=== PATIENT | female | born 1975 | race Caucasian/White ===

== ENCOUNTER 2018-01-11 19:52 | Emergency (ER) | payer MEDICAID ==
[~2018-01-11] VITALS: Ht 157.5 cm; Wt 99.7 kg
[~2018-01-11 19:52] MED LIST: ALPR-624 PO; CHOL10002 PO; FENO145T38 PO
[2018-01-11 19:55] VITALS: BP 148/76
== END 2018-01-11 21:10 | disposition home or self-care (01) ==
LOC: ER 19:55
DX: H92.03 Otalgia, bilateral (principal); Z88.5 Allergy status to narcotic agent; Z88.2 Allergy status to sulfonamides; Z88.1 Allergy status to other antibiotic agents; Z79.899 Other long term (current) drug therapy
CPT/HCPCS: 99281

== ENCOUNTER 2018-06-06 14:05 | Emergency (ER) | payer MEDICAID ==
[~2018-06-06] VITALS: Ht 157.5 cm; Wt 100.0 kg
[2018-06-06 14:15] VITALS: BP 136/84
[2018-06-06] MEDS ORDERED: LORazepam 1 MG tablet PO ONE (14:35)
[2018-06-06] MEDS ORDERED: meclizine 12.5mg tablet PO ONE (14:35)
[2018-06-06] MEDS ORDERED: LORA1TAB PO (15:11)
[2018-06-06] MEDS ORDERED: MECL-111 PO (15:11)
== END 2018-06-06 15:33 | disposition home or self-care (01) ==
LOC: ER 14:06
DX: R42 Dizziness and giddiness (principal); H53.8 Other visual disturbances; R22.0 Localized swelling, mass and lump, head; Z88.5 Allergy status to narcotic agent; Z88.1 Allergy status to other antibiotic agents; Z79.899 Other long term (current) drug therapy
CPT/HCPCS: 93005; 99283; J8597

== ENCOUNTER 2020-05-02 14:09 | Emergency (ER) | payer MEDICAID ==
[~2020-05-02] VITALS: Ht 157.5 cm; Wt 100.9 kg
[~2020-05-02 14:09] MED LIST changes: +MECL-159 PO
[2020-05-02 14:21] VITALS: BP 153/78
[2020-05-02] MEDS ORDERED: ketorolac tromethamine 15mg/ml inj. IM ONE (15:45)
== END 2020-05-02 16:28 | disposition home or self-care (01) ==
LOC: ER 14:10
DX: R68.84 Jaw pain (principal); R22.0 Localized swelling, mass and lump, head; F41.9 Anxiety disorder, unspecified; F32.9 Major depressive disorder, single episode, unspecified; Z88.5 Allergy status to narcotic agent; Z88.1 Allergy status to other antibiotic agents; Z88.2 Allergy status to sulfonamides; Z79.899 Other long term (current) drug therapy
CPT/HCPCS: 96372; 99283; J1885

== ENCOUNTER 2020-07-19 05:22 | Day surgery (SDC) | payer MEDICAID ==
[2020-07-12 11:08] LABS: BASOPHILS % (AUTO) 0.5 % (0-1); EOSINOPHILS # (AUTO) 0.4 X10'3 (0-0.9); EOSINOPHILS % (AUTO) 5.5 % (0-6); LYMPHOCYTES # (AUTO) 3.1 X10'3 (1.1-4.8); LYMPHOCYTES % (AUTO) 45.7 % (21-51); MEAN CORPUSCULAR HEMOGLOBIN 29.4 PG (27.0-31.0); MEAN CORPUSCULAR HGB CONC 32.8 g/dL (33.0-36.5); MEAN CORPUSCULAR VOLUME 89.7 FL (78-98); MEAN PLATELET VOLUME 8.3 FL (7.4-10.4); MONOCYTES # (AUTO) 0.6 X10'3 (0-0.9); MONOCYTES % (AUTO) 9.3 % (2-12); NEUTROPHILS # (AUTO) 2.6 X10'3 (1.8-7.7); PRE OP HEMATOCRIT 41.4 % (35.0-45.0); PRE OP HEMOGLOBIN 13.6 g/dL (12.0-16.0); PRE OP PLATELET COUNT 296 X10'3 (140-440); RED BLOOD COUNT 4.62 X10'6 (4.20-5.60); RED CELL DISTRIBUTION WIDTH 13.5 % (11.5-14.5)
[2020-07-12 11:24] LABS: ALBUMIN 3.8 G/DL (3.4-5.0); ALKALINE PHOSPHATASE 89 IU/L (46-116); BLOOD UREA NITROGEN 10 MG/DL (7-18); BUN/CREATININE RATIO 10.2 (6.6-38.0); CALCIUM 9.2 MG/DL (8.5-10.1); CHLORIDE 105 MMOL/L (99-107); CREATININE 0.98 MG/DL (0.40-0.90); PRE OP ALT 57 U/L (30-65); PRE OP ANION GAP 8 (8-16); PRE OP AST 27 U/L (10-37); PRE OP BILIRUB, TOTAL 0.5 MG/DL (0.0-1.0); PRE OP GLUCOSE 75 MG/DL (70-104); PRE OP POTASSIUM 3.8 MMOL/L (3.4-5.1); PRE OP SODIUM 141 MMOL/L (135-145); TOTAL CARBON DIOXIDE 28.2 MMOL/L (24-32); TOTAL PROTEIN 7.7 G/DL (6.4-8.2); eGFR 61 ML/MIN
[~2020-07-19] VITALS: Ht 157.5 cm; Wt 106.1 kg
[~2020-07-19 05:22] MED LIST changes: +ATOR80TA13 PO; -CHOL10002 PO; -FENO145T38 PO; +HYDR-3972 PO; +IBUP-1986 PO; -MECL-159 PO; +PANT40SU2 PO; +TRAZ-251 PO
[2020-07-19] MEDS ORDERED: famotidine 20mg tablet PO ONE (05:30)
[2020-07-19] MEDS ORDERED: ringers solution, lacted 1,000 ML IV SCH (05:30)
[2020-07-19] MEDS ORDERED: cefazolin/dext.iso 2gm/100ml IV ONE (05:30)
[2020-07-19] MEDS ORDERED: LIDOcaine 1% (10mg/ml) 2ml vial ONE ×2 (05:44→05:45)
[2020-07-19 06:49] VITALS: BP 142/92
[2020-07-19 06:50] VITALS: BP 142/92
[2020-07-19] MEDS ORDERED: BUPIVAcaine/PF 2.5 mg/ml (0.25%) 30ml vial ONE (07:05)
[2020-07-19] MEDS ORDERED: fentaNYL/PF 50MCG/1 ML 2ML syringe ONE (07:10)
[2020-07-19] MEDS ORDERED: MIDAZolam 1 MG/ML 5ML VIAL ONE (07:11)
[2020-07-19] MEDS ORDERED: LIDOcaine 1% 30ml preserv. free vial ONE ×2 (07:19→07:20)
[2020-07-19] MEDS ORDERED: ketorolac trometh. 30mg/ml inj. ONE (07:33)
[2020-07-19] MEDS ORDERED: propofol inj 20 ML IV ONE (07:54)
[2020-07-19 07:56] VITALS: BP 118/76
--- NOTE | 2020-07-19 07:56 | NUR ---
RECEIVED PATIENT ON [facility] AND REPORT FROM ANESTHESIOLOGIST DR. MACEDO, PATIENT IS IN SPINE, V.S. STABLE, DENIES PAIN OR NAUSEA, DRESSING AND IBRAHIMA WRAP ON RIGHT WRIST, CDI, PIV ON LEFT WRIST 22G WITH LR RUNNING, WILL MONITOR. Addendum: 07/19/20 at 0807 by Flavia Turner RN Amended: Links added.
[2020-07-19 08:10] VITALS: BP 117/71
[2020-07-19 08:20] VITALS: BP 118/71
[2020-07-19 08:30] VITALS: BP 122/72
--- NOTE | 2020-07-19 08:36 | NUR ---
PATIENT'S V.S. STABLE, DENIES PAIN OR NAUSEA, DRESSING AND IBRAHIMA WRAP CDI ON RIGHT WRIST, PIV D/C'D FROM LEFT WRIST 22G CATH INTACT, DISCHARGE INSTRUCTION GIVEN TO PATIENT, VERBALIZED UNDERSTANDING, PATIENT TRANSFERRED WITH ONE BAG OF BELONGING TO PRIVATE VEHICLE IN WHEELCHAIR WITH NO INCIDENTS, HER MOTHER WILL TRANSFER PATIENT HOME. Addendum: 07/19/20 at 0846 by Flavia Turner RN Amended: Links added.
== END 2020-07-19 08:36 | disposition home or self-care (01) ==
LOC: PAS 05:22
PROVIDERS: ATTEND Orthopaedic Surgery Hand Surgery
DX: G56.01 Carpal tunnel syndrome, right upper limb (principal); M65.311 Trigger thumb, right thumb; M65.331 Trigger finger, right middle finger; E78.00 Pure hypercholesterolemia, unspecified; F41.9 Anxiety disorder, unspecified; K21.9 Gastro-esophageal reflux disease without esophagitis; E66.01 Morbid (severe) obesity due to excess calories; Z68.41 Body mass index [BMI] 40.0-44.9, adult; Z88.5 Allergy status to narcotic agent; Z88.2 Allergy status to sulfonamides; Z88.1 Allergy status to other antibiotic agents; Z87.891 Personal history of nicotine dependence; Z98.51 Tubal ligation status; Z90.721 Acquired absence of ovaries, unilateral
CPT/HCPCS: 26055; 29848; 36415; 80053; 82948; 85025; 93005; A6222; J1885; J2001; J2250; J2704; J3010; J3490; A4215; A6449; A7000; J7120

== ENCOUNTER 2022-03-07 17:28 | Emergency (ER) | payer MEDICAID ==
[~2022-03-07] VITALS: Ht 157.5 cm; Wt 100.0 kg
[2022-03-07 17:34] VITALS: BP 164/89
== END 2022-03-07 19:38 | disposition left against medical advice (07) ==
LOC: ER 17:28
DX: R51.9 Headache, unspecified (principal); Z53.21 Procedure and treatment not carried out due to patient leaving prior to being seen by health care provider

== ENCOUNTER 2022-06-19 07:30 | Day surgery (SDC) | payer MEDICAID ==
[2022-06-13 09:46] LABS: BASOPHILS % (AUTO) 0.6 % (0-1); EOSINOPHILS # (AUTO) 0.2 X10'3 (0-0.9); EOSINOPHILS % (AUTO) 3.9 % (0-6); LYMPHOCYTES # (AUTO) 2.2 X10'3 (1.1-4.8); MEAN CORPUSCULAR HEMOGLOBIN 29.7 PG (27.0-31.0); MEAN CORPUSCULAR HGB CONC 33.4 g/dL (33.0-36.5); MEAN CORPUSCULAR VOLUME 88.9 FL (78-98); MEAN PLATELET VOLUME 8.8 FL (7.4-10.4); MONOCYTES # (AUTO) 0.4 X10'3 (0-0.9); MONOCYTES % (AUTO) 6.8 % (2-12); NEUTROPHILS # (AUTO) 3.1 X10'3 (1.8-7.7); NEUTROPHILS % (AUTO) 51.7 % (42-75); PRE OP HEMATOCRIT 42.4 % (35.0-45.0); PRE OP HEMOGLOBIN 14.2 g/dL (12.0-16.0); PRE OP PLATELET COUNT 328 X10'3 (140-440); RED BLOOD COUNT 4.78 X10'6 (4.20-5.60); RED CELL DISTRIBUTION WIDTH 13.5 % (11.5-14.5)
[2022-06-13 10:01] LABS: ALBUMIN/GLOBULIN RATIO 1.1 (1.1-1.5); ALKALINE PHOSPHATASE 52 IU/L (46-116); BLOOD UREA NITROGEN 17 MG/DL (7-18); BUN/CREATININE RATIO 15.6 (10.0-20.0); CALCIUM 9.4 MG/DL (8.5-10.1); CHLORIDE 106 MMOL/L (99-107); CREATININE 1.09 MG/DL (0.40-0.90); PRE OP ALT 58 U/L (30-65); PRE OP ANION GAP 8 (8-16); PRE OP AST 32 U/L (10-37); PRE OP BILIRUB, TOTAL 0.2 MG/DL (0.0-1.0); PRE OP GLUCOSE 102 MG/DL (70-104); PRE OP POTASSIUM 4.3 MMOL/L (3.4-5.1); PRE OP SODIUM 141 MMOL/L (135-145); TOTAL CARBON DIOXIDE 27.3 MMOL/L (24-32); TOTAL PROTEIN 7.8 G/DL (6.4-8.2); eGFR 54 ML/MIN
[~2022-06-19] VITALS: Ht 157.5 cm; Wt 99.9 kg
[~2022-06-19 07:30] MED LIST changes: -ALPR-624 PO; -ATOR80TA13 PO; +FENO160T PO; -HYDR-3972 PO; -IBUP-1986 PO; -TRAZ-251 PO; +[UNRECOGNIZED DRUG - REMARK] PO; +clindamycin-Cleocin 900mg/D5W 50 ML IV ONE; +famotidine 20mg tablet PO ONE; +ringers solution, lacted 1,000 ML IV SCH
[2022-06-19 07:40] VITALS: BP 129/74
[2022-06-19] MEDS ORDERED: BUPIVAcaine/PF 2.5mg/ml (0.25%) 10ml vial ONE (07:49)
[2022-06-19] MEDS ORDERED: morphine 2 MG/ML inj. syringe IV PRN (08:00)
[2022-06-19] MEDS ORDERED: labetalol 20mg/4ml (5mg/ml) syringe IV PRN (08:00)
[2022-06-19] MEDS ORDERED: ringers solution, lacted 1,000 ML IV SCH (08:00)
[2022-06-19] MEDS ORDERED: ondansetron/PF 4mg/2ml inj IV PRN (08:00)
[2022-06-19] MEDS ORDERED: morphine 4 MG/ML inj SYRINge IV PRN (08:00)
[2022-06-19] MEDS ORDERED: midazolam 1 mg/ML 2ml injection ONE (10:21)
[2022-06-19] MEDS ORDERED: fentaNYL/PF 50MCG/1 ML 2ML syringe ONE (10:21)
[2022-06-19] MEDS ORDERED: LIDOcaine 0.5% (5mg/ml) 50ml vial ONE (10:21)
[2022-06-19 10:37] VITALS: BP 132/74
--- NOTE | 2022-06-19 10:37 | NUR ---
Received from OR via , accompanied by Anesthesiologist LUIS AND OR JESUS and report given by Anesthesiolgist. PT DROWSY YET REPSONDS TO VERBAL STIMULI. DENIES PAIN OR DISCOMFORT. RT WRIST WITH GAUZE AND IBRAHIMA WRAP; CDI. VSS Addendum: 06/19/22 at 1054 by Ally Palacios RN Amended: Links added.
[2022-06-19 10:50] VITALS: BP 130/79
[2022-06-19 11:00] VITALS: BP 110/74
[2022-06-19 11:10] VITALS: BP 109/66
[2022-06-19 11:20] VITALS: BP 116/76
--- NOTE | 2022-06-19 11:37 | NUR ---
ALL DISCHARGE CRITERIA HAS BEEN MET. VSS, PAIN AT A TOLERABLE LEVEL, VOIDING AND ABLE TO SAFELY AMBULATE AND TRANSFER SELF. IV TAKEN OUT WITHOUT ANY COMPLICATIONS. ALL DISCHARGE INSTRUCTIONS COVERED WITH PATIENT AND ALL QUESTIONS ANSWERED. PATIENT TAKEN OUT VIA WHEELCHAIR TO PERSONAL VEHICLE WHERE FAMILY/FRIEND DROVE PATIENT HOME. Addendum: 06/19/22 at 1144 by Ally Palacios RN Amended: Links added.
== END 2022-06-19 11:37 | disposition home or self-care (01) ==
LOC: PAS 07:30
PROVIDERS: ATTEND Orthopaedic Surgery Hand Surgery
DX: M65.341 Trigger finger, right ring finger (principal); E78.00 Pure hypercholesterolemia, unspecified; E66.9 Obesity, unspecified; Z68.41 Body mass index [BMI] 40.0-44.9, adult; K21.9 Gastro-esophageal reflux disease without esophagitis; F41.9 Anxiety disorder, unspecified; Z87.891 Personal history of nicotine dependence; Z88.1 Allergy status to other antibiotic agents; Z88.0 Allergy status to penicillin; Z88.5 Allergy status to narcotic agent; Z88.2 Allergy status to sulfonamides; Z79.899 Other long term (current) drug therapy; Z98.890 Other specified postprocedural states; Z90.722 Acquired absence of ovaries, bilateral
CPT/HCPCS: 26055; 36415; 80053; 82948; 85025; 93005; J2250; J3010; J3490; J7030; J7120; Z7506; Z7512; A4215

== ENCOUNTER 2023-03-27 11:12 | Emergency (ER) | payer MEDICAID ==
[~2023-03-27] VITALS: Ht 160 cm; Wt 98.7 kg
[~2023-03-27 11:12] MED LIST changes: -clindamycin-Cleocin 900mg/D5W 50 ML IV ONE; -famotidine 20mg tablet PO ONE; -ringers solution, lacted 1,000 ML IV SCH
[2023-03-27 11:45] VITALS: BP 138/81; PULSE 70; RESP 16; TEMP 97.9; O2SAT 100
[2023-03-27] MEDS ORDERED: OXYM30SP26 BOTHNARES (12:24)
[2023-03-27] MEDS ORDERED: PRED20TA PO (12:24)
[2023-03-27] MEDS ORDERED: DIPH25TA62 PO (12:24)
== END 2023-03-27 12:44 | disposition home or self-care (01) ==
LOC: ER 11:12
DX: H69.92 Unspecified Eustachian tube disorder, left ear (principal); F31.9 Bipolar disorder, unspecified; I10 Essential (primary) hypertension; Z88.5 Allergy status to narcotic agent; Z88.8 Allergy status to other drugs, medicaments and biological substances; Z79.899 Other long term (current) drug therapy
CPT/HCPCS: 99283

== ENCOUNTER → 2024-01-07 | Emergency (ER) | payer MEDICAID ==
[~2024-01-07] VITALS: Ht 157.5 cm; Wt 99.0 kg
[~2024-01-07] MED LIST changes: +DIPH25TA62 PO; +OXYM30SP26 BOTHNARES
[2024-01-07 17:08] VITALS: BP 156/85; PULSE 68; RESP 16; TEMP 98.3; O2SAT 99
== END | disposition left against medical advice (07) ==
LOC: ER 16:48
DX: Z23 Encounter for immunization (principal); F41.9 Anxiety disorder, unspecified; F32.A Depression, unspecified; Z88.1 Allergy status to other antibiotic agents; Z88.2 Allergy status to sulfonamides; Z79.899 Other long term (current) drug therapy; W55.51XA Bitten by raccoon, initial encounter; Y93.89 Activity, other specified; Y92.89 Other specified places as the place of occurrence of the external cause; Y99.8 Other external cause status
CPT/HCPCS: 99281

== ENCOUNTER 2024-04-15 16:02 | Emergency (ER) | payer OTHER, MEDICAID ==
[~2024-04-15] VITALS: Ht 157.5 cm; Wt 98.9 kg
[2024-04-15] MEDS ORDERED: LIDO700A32 TD (19:18)
[2024-04-15] MEDS ORDERED: BACL10TA2 PO (19:18)
[2024-04-15] MEDS: LIDOcaine 5% patch TP STA (19:27)
[2024-04-15 19:49] VITALS: BP 134/70; PULSE 74; RESP 16; TEMP 97.8; O2SAT 98
== END 2024-04-15 19:49 | disposition home or self-care (01) ==
LOC: ER 16:03
DX: M54.2 Cervicalgia (principal); F41.9 Anxiety disorder, unspecified; F32.A Depression, unspecified; Z88.5 Allergy status to narcotic agent; Z88.2 Allergy status to sulfonamides; Z88.1 Allergy status to other antibiotic agents; Z79.899 Other long term (current) drug therapy; V89.2XXA Person injured in unspecified motor-vehicle accident, traffic, initial encounter; Y93.89 Activity, other specified; Y92.89 Other specified places as the place of occurrence of the external cause; Y99.8 Other external cause status
CPT/HCPCS: 99283; L0172

== ENCOUNTER 2024-05-28 18:30 | Inpatient (IN) | payer MEDICAID, OTHER ==
[~2024-05-28] VITALS: Ht 157.5 cm; Wt 100.5 kg
[~2024-05-28 18:30] MED LIST changes: +BACL10TA2 PO; +LIDO700A32 TD
[2024-05-28 19:04] LABS: BASOPHILS % (AUTO) 0.5 % (0-1); EOSINOPHILS # (AUTO) 0.2 X10'3 (0-0.9); EOSINOPHILS % (AUTO) 2.4 % (0-6); HEMATOCRIT 43.5 % (35.0-45.0); HEMOGLOBIN 14.3 g/dl (12.0-16.0); LYMPHOCYTES # (AUTO) 3.1 X10'3 (1.1-4.8); LYMPHOCYTES % (AUTO) 34.5 % (21-51); MEAN CORPUSCULAR HEMOGLOBIN 29.2 PG (27.0-31.0); MEAN CORPUSCULAR HGB CONC 32.9 g/dL (33.0-36.5); MEAN CORPUSCULAR VOLUME 88.9 FL (78-98); MEAN PLATELET VOLUME 8.6 FL (7.4-10.4); MONOCYTES # (AUTO) 0.5 X10'3 (0-0.9); MONOCYTES % (AUTO) 5.9 % (2-12); NEUTROPHILS # (AUTO) 5.1 X10'3 (1.8-7.7); NEUTROPHILS % (AUTO) 56.7 % (42-75); PLATELET COUNT 348 X10'3 (140-440); RED BLOOD COUNT 4.89 X10'6 (4.20-5.60); RED CELL DISTRIBUTION WIDTH 13.4 % (11.5-14.5)
[2024-05-28 19:16] LABS: ALBUMIN 4.2 G/DL (3.4-5.0); ANION GAP 8 (8-16); BLOOD UREA NITROGEN 16 MG/DL (7-18); BUN/CREATININE RATIO 16.8 (10.0-20.0); CALCIUM 9.3 MG/DL (8.5-10.1); CHLORIDE 107 MMOL/L (99-107); CREATININE 0.95 MG/DL (0.40-0.90); GLUCOSE 113 MG/DL (70-104); POTASSIUM 3.9 MMOL/L (3.5-5.1); SODIUM 142 MMOL/L (135-145); TOTAL CARBON DIOXIDE 26.8 MMOL/L (24-32); eCRCL 57 ML/MIN; eGFR 63 ML/MIN
[2024-05-28 19:17] LABS: PROTHROMBIN TIME 10.5 SECONDS (9.0-12.0)
[2024-05-28 19:18] LABS: APTT 27 SECONDS (22-32)
[2024-05-28] MEDS: LORazepam 1 MG tablet PO ONE (20:35)
[2024-05-28] MEDS ORDERED: mag hydrox/Alum hydrox/simeth 30ml oral suspension PO PRN (21:25)
[2024-05-28] MEDS ORDERED: magnesium hydroxide 30ml (MOM) UD suspension PO PRN (21:25)
[2024-05-28] MEDS ORDERED: magnesium sulf-water 4G/100mL 100 ML IV PRN (21:25)
[2024-05-28] MEDS ORDERED: magnesium Cl slow-release 64mg tablet PO PRN (21:25)
[2024-05-28] MEDS ORDERED: potassium Cl 40MEQ/1/2NS 520ml 520 ML IV PRN (21:25)
[2024-05-28] MEDS ORDERED: ondansetron/PF 4mg/2ml inj IV PRN (21:25)
[2024-05-28] MEDS ORDERED: magnesium sulf-water 2g/50mL 50 ML IV PRN (21:25)
[2024-05-28] MEDS ORDERED: acetaminophen 325mg tablet PO PRN (21:25)
[2024-05-28] MEDS ORDERED: potassium Cl 20 mEq SR tablet PO PRN ×2 (21:25)
[2024-05-28] MEDS ORDERED: iohexol 350MG/ML 100ml bottle IV ONE (21:31)
[2024-05-28 21:41] LABS: BILIRUBIN,URINE NEGATIVE (Neg); CLARITY,URINE CLEAR (Clear); COLOR,URINE YELLOW (Yellow); GLUCOSE, URINE NEGATIVE (Neg); KETONES,URINE NEGATIVE (Neg); LEUKOCYTE ESTERASE ,URINE NEGATIVE (Neg); NITRITES, URINE NEGATIVE (Neg); OCCULT BLOOD,URINE TRACE-INTACT (Neg); PROTEIN,URINE NEGATIVE (Neg); UROBILINOGEN,URINE 0.2 E.U/dL (0.2-1.0)
[2024-05-28 21:49] LABS: UA COLLECTION TYPE NON-SPECIFIED
[2024-05-28 21:51] LABS: HEMOGLOBIN A1C 5.4 % (4.5-6.2)
[2024-05-28 21:51] LABS: BACTERIA,URINE 1+ /HPF (Neg); RBC,URINE 0-2 /HPF (0-2); SQUAMOUS EPITHELIAL CELL,UR FEW /LPF (FEW); TRANSITIONAL EPI CELLS,URINE FEW /HPF; WBC,URINE 0-4 /HPF (0-4)
[2024-05-28] MEDS: aspirin 325mg tablet, delayed-release (Ecotrin) PO ONE (21:52)
[2024-05-28] MEDS ORDERED: SEMA0.5P SUBCUT (22:01)
[2024-05-28] MEDS ORDERED: EZET-59 PO (22:01)
[2024-05-28] MEDS ORDERED: CHOL200059 PO (22:01)
[2024-05-28] MEDS ORDERED: EZET10TA48 PO (22:03)
[2024-05-28] MEDS: normal saline 1000ml 1,000 ML IV SCH (22:14)
[2024-05-28 23:25] VITALS: BP 154/100; PULSE 87; RESP 18; TEMP 98.5; O2SAT 96
[2024-05-29] VITALS (7 sets, daily range): BP systolic 130–140; BP diastolic 64–84; PULSE 66–83; RESP 13–18; TEMP 97.6–98.7; O2SAT 96–100
[2024-05-29 06:33] LABS: BASOPHILS % (AUTO) 0.3 % (0-1); EOSINOPHILS # (AUTO) 0.4 X10'3 (0-0.9); EOSINOPHILS % (AUTO) 4.2 % (0-6); HEMATOCRIT 39.6 % (35.0-45.0); HEMOGLOBIN 13.2 g/dl (12.0-16.0); LYMPHOCYTES # (AUTO) 2.4 X10'3 (1.1-4.8); MEAN CORPUSCULAR HGB CONC 33.3 g/dL (33.0-36.5); MONOCYTES # (AUTO) 0.6 X10'3 (0-0.9); MONOCYTES % (AUTO) 7.4 % (2-12); NEUTROPHILS # (AUTO) 5.1 X10'3 (1.8-7.7); NEUTROPHILS % (AUTO) 60.1 % (42-75); PLATELET COUNT 307 X10'3 (140-440); RED CELL DISTRIBUTION WIDTH 13.9 % (11.5-14.5); WHITE BLOOD COUNT 8.5 X10'3 (4.5-11.0)
[2024-05-29 06:49] LABS: ALANINE AMINOTRANSFERASE 48 U/L (12-78); ALBUMIN 3.6 G/DL (3.4-5.0); ALKALINE PHOSPHATASE 51 IU/L (46-116); ANION GAP 8 (8-16); ASPARTATE AMINO TRANSFERASE 19 U/L (10-37); BILIRUBIN,TOTAL 0.3 MG/DL (0.1-1.0); BLOOD UREA NITROGEN 16 MG/DL (7-18); CALCIUM 8.7 MG/DL (8.5-10.1); CHLORIDE 109 MMOL/L (99-107); CHOL/HDL RATIO 3.8 (0.00-4.99); CHOLESTEROL 203 MG/DL (0-200); CREATININE 0.84 MG/DL (0.40-0.90); GLUCOSE 101 MG/DL (70-104); HDL CHOLESTEROL 53 MG/DL (35-60); LDL CHOLESTEROL 121 MG/DL (50-100); MAGNESIUM 1.8 MG/DL (1.5-2.4); POTASSIUM 3.8 MMOL/L (3.5-5.1); SODIUM 143 MMOL/L (135-145); TOTAL PROTEIN 7.2 G/DL (6.4-8.2); TRIGLYCERIDES 123 MG/DL (20-135); eCRCL 64 ML/MIN; eGFR 72 ML/MIN
[2024-05-29] MEDS: K and/or MAG REPLACEMENT MC SCH (08:00)
[2024-05-29] MEDS: heparin, porcine 5000 units/ml vial SQ SCH (08:25)
[2024-05-29] MEDS: ezetimibe 10mg tablet PO SCH (08:26)
[2024-05-29] MEDS: docusate sod 100mg capsule PO SCH (08:26)
[2024-05-29] MEDS: aspirin 81mg, enteric-coated 1 TAB TABLET.DR PO SCH (08:26)
[2024-05-29] MEDS: cholecalciferol (vitamin D3) 1,000 unit (25mcg) tablet PO SCH (08:26)
[2024-05-29] MEDS: diazepam inj 5 MG/ML inj. IV ONE (13:27)
[2024-05-29] MEDS: atorvastatin 20mg tablet PO ONE (19:00)
[2024-05-29] MEDS: pantoprazole 40mg Tablet.DR PO SCH (20:16)
[2024-05-29] MEDS: fenofibrate 145mg tablet PO SCH (20:16)
[2024-05-30 02:00] VITALS: BP 138/88; PULSE 72; RESP 14; TEMP 98.2; O2SAT 98
[2024-05-30 05:33] LABS: BASOPHILS % (AUTO) 0.3 % (0-1); EOSINOPHILS # (AUTO) 0.3 X10'3 (0-0.9); EOSINOPHILS % (AUTO) 5.4 % (0-6); HEMATOCRIT 38.3 % (35.0-45.0); HEMOGLOBIN 12.8 g/dl (12.0-16.0); LYMPHOCYTES # (AUTO) 2.6 X10'3 (1.1-4.8); LYMPHOCYTES % (AUTO) 40.5 % (21-51); MEAN CORPUSCULAR HEMOGLOBIN 29.7 PG (27.0-31.0); MEAN CORPUSCULAR HGB CONC 33.4 g/dL (33.0-36.5); MEAN PLATELET VOLUME 8.6 FL (7.4-10.4); MONOCYTES # (AUTO) 0.4 X10'3 (0-0.9); MONOCYTES % (AUTO) 6.5 % (2-12); NEUTROPHILS % (AUTO) 47.3 % (42-75); PLATELET COUNT 295 X10'3 (140-440); RED CELL DISTRIBUTION WIDTH 13.3 % (11.5-14.5); WHITE BLOOD COUNT 6.3 X10'3 (4.5-11.0)
[2024-05-30 06:03] LABS: ALANINE AMINOTRANSFERASE 43 U/L (12-78); ALBUMIN 3.5 G/DL (3.4-5.0); ALKALINE PHOSPHATASE 49 IU/L (46-116); ANION GAP 9 (8-16); ASPARTATE AMINO TRANSFERASE 19 U/L (10-37); BILIRUBIN,TOTAL 0.3 MG/DL (0.1-1.0); BLOOD UREA NITROGEN 12 MG/DL (7-18); BUN/CREATININE RATIO 15.2 (10.0-20.0); CALCIUM 8.7 MG/DL (8.5-10.1); CHLORIDE 108 MMOL/L (99-107); CREATININE 0.79 MG/DL (0.40-0.90); GLUCOSE 121 MG/DL (70-104); MAGNESIUM 1.7 MG/DL (1.5-2.4); POTASSIUM 3.8 MMOL/L (3.5-5.1); SODIUM 141 MMOL/L (135-145); TOTAL CARBON DIOXIDE 23.9 MMOL/L (24-32); TOTAL PROTEIN 6.9 G/DL (6.4-8.2); eCRCL 68 ML/MIN; eGFR 77 ML/MIN
[2024-05-30 06:55] VITALS: BP 151/82; PULSE 71; RESP 16; TEMP 97.5; O2SAT 97
[2024-05-30] MEDS: atorvastatin 20mg tablet PO SCH (07:42)
[2024-05-30] MEDS ORDERED: ASPI-920 PO (07:49)
[2024-05-30] MEDS ORDERED: PRAV40TA3 PO (07:49)
[2024-05-30 08:00] VITALS: RESP 16; O2SAT 98
[2024-05-31] MEDS ORDERED: LISI20TA28 PO (14:45)
== END 2024-05-30 10:25 | disposition home or self-care (01) | DRG 47 ==
LOC: ER 18:31 → ED HOLD 20:45 → ORTHO 4S 23:25
PROVIDERS: ADMIT Internal Medicine Pulmonary Disease; ATTEND Family Medicine
PROC: B3251ZZ Computerized Tomography (CT Scan) of Bilateral Common Carotid Arteries using Low Osmolar Contrast (ICD-10-PCS; principal; 2024-05-28)
PROC: B32G1ZZ Computerized Tomography (CT Scan) of Bilateral Vertebral Arteries using Low Osmolar Contrast (ICD-10-PCS; 2024-05-28)
PROC: B32R1ZZ Computerized Tomography (CT Scan) of Intracranial Arteries using Low Osmolar Contrast (ICD-10-PCS; 2024-05-28)
PROC: B3281ZZ Computerized Tomography (CT Scan) of Bilateral Internal Carotid Arteries using Low Osmolar Contrast (ICD-10-PCS; 2024-05-28)
DX: G45.9 Transient cerebral ischemic attack, unspecified (principal); E66.813 Obesity, class 3; E78.01 Familial hypercholesterolemia; F40.240 Claustrophobia; R73.03 Prediabetes; F41.9 Anxiety disorder, unspecified; F32.A Depression, unspecified; Z68.41 Body mass index [BMI] 40.0-44.9, adult; Z88.1 Allergy status to other antibiotic agents; Z88.5 Allergy status to narcotic agent; Z88.8 Allergy status to other drugs, medicaments and biological substances
CPT/HCPCS: 36415; 70450; 70496; 70498; 70551; 71045; 80048; 80053; 80061; 81001; 83036; 83735; 85025; 85610; 85730; 86885; 86900; 86901; 87081; 92508; 92616; 93005; 93306; 97116; 97161; 97530; 99291; G0378; J1644; J3360; J7030; Q9967

== ENCOUNTER 2024-05-31 13:27 | Emergency (ER) | payer MEDICAID ==
[~2024-05-31] VITALS: Ht 157.5 cm; Wt 99.5 kg
[~2024-05-31 13:27] MED LIST changes: +ASPI-920 PO; -BACL10TA2 PO; +CHOL200059 PO; -DIPH25TA62 PO; +EZET10TA48 PO; -LIDO700A32 TD; -OXYM30SP26 BOTHNARES; +PRAV40TA3 PO; +SEMA0.5P SUBCUT
[2024-05-31 13:46] VITALS: TEMP 98.5
[2024-05-31 14:03] VITALS: BP_DIAS 90; O2SAT 97
[2024-05-31 14:21] VITALS: RESP 15
[2024-05-31 14:42] LABS: BILIRUBIN,URINE NEGATIVE (Neg); CLARITY,URINE CLEAR (Clear); COLOR,URINE YELLOW (Yellow); GLUCOSE, URINE NEGATIVE (Neg); KETONES,URINE NEGATIVE (Neg); LEUKOCYTE ESTERASE ,URINE NEGATIVE (Neg); NITRITES, URINE NEGATIVE (Neg); OCCULT BLOOD,URINE TRACE-INTACT (Neg); PH,URINE 5.5 (4.8-8.0); PROTEIN,URINE NEGATIVE (Neg); UROBILINOGEN,URINE 0.2 E.U/dL (0.2-1.0)
[2024-05-31 14:44] LABS: UA COLLECTION TYPE VOIDED
[2024-05-31] MEDS ORDERED: LISI20TA28 PO (14:45)
[2024-05-31 14:48] LABS: BACTERIA,URINE 1+ /HPF (Neg); MUCUS STRANDS FEW /LPF (Neg); RBC,URINE 0-2 /HPF (0-2); SQUAMOUS EPITHELIAL CELL,UR FEW /LPF (FEW); WBC,URINE 0-4 /HPF (0-4)
[2024-05-31 14:57] VITALS: BP_SYST 149; PULSE 74
[2024-05-31] MEDS: lisinopril 10 MG tablet PO ONE (14:57)
== END 2024-05-31 15:05 | disposition home or self-care (01) ==
LOC: ER 13:27
DX: G45.9 Transient cerebral ischemic attack, unspecified (principal); F41.9 Anxiety disorder, unspecified; F32.A Depression, unspecified; I10 Essential (primary) hypertension; Z88.5 Allergy status to narcotic agent; Z88.2 Allergy status to sulfonamides; Z88.1 Allergy status to other antibiotic agents; Z86.73 Personal history of transient ischemic attack (TIA), and cerebral infarction without residual deficits; Z79.82 Long term (current) use of aspirin; Z79.899 Other long term (current) drug therapy
CPT/HCPCS: 81001; 99283